=== PATIENT | female | born 1930 | race Caucasian/White ===

== ENCOUNTER 2018-01-27 14:00 | Inpatient (IN) | payer OTHER ==
[2018-01-27] MEDS ORDERED: NS 250 ML IV ONE (14:15)
[2018-01-27] MEDS ORDERED: ceFAZolin 2 GM/DEXTROSE 100 ML IV ONE (14:16)
--- NOTE | 2018-01-27 14:21 | EDPHY ---
H & P Time Seen by Provider: 01/27/18 14:12 HPI/ROS: HPI Right wrist injury. 87-year-old female by ambulance. This patient was walking with family when she tripped over a curb and fell on an outstretched right upper extremity. She presents the emergency department with complaint of a right wrist injury. Per report from EMS they felt this was a open fracture. She did not hit her head. Denies any neck pain. Denies any other extremity pain. She is on Coumadin for atrial fibrillation. She is right-hand dominant. ROS: Constitutional: No fever, no chills. No weakness. Eyes: No discharge. No changes in vision. ENT: No sore throat. No nasal congestion or rhinorrhea. Respiratory: No cough. No shortness of breath. Cardiac: No chest pain, no palpitations. Gastrointestinal: No abdominal pain, no vomiting, no diarrhea. Genitourinary: No hematuria. No dysuria or increased frequency with urination. Musculoskeletal: No back pain. No neck pain. As above. No other extremity pain. Skin: No rashes. Neurological: No headache. No focal weakness or altered sensation. Past medical history: Hypertension, atrial fibrillation. She takes Coumadin and HCTZ. Social history: Here with family. Nonsmoker. No alcohol. Physical Exam: General Appearance: Alert, no distress. This patient is responding to questions appropriately and in full sentences. This patient appears well- hydrated and well-nourished. Eyes: Pupils equal and round no pallor or injection. No lid edema, erythema or injection. Right upper extremity exam: Colles fracture deformity of the distal radius. Also significant for a elliptical, 6 cm skin tear over the distal ulna with exposure of the distal ulna and probable ulna carpal subluxation. The right hand is neurovascularly intact. Respiratory: There are no retractions, lungs are clear to auscultation with good air movement bilaterally. Cardiovascular: Regular rate and rhythm. No murmur. Gastrointestinal: Abdomen is soft and nontender, no masses, bowel sounds normal. No focal tenderness at McBurney's point. No Jalloh sign. Neurological: Motor sensory function is grossly intact. Cranial nerves are normal. Gait is normal. Skin: Warm and dry, no rashes. Musculoskeletal: Neck is supple and nontender. Extremities are symmetrical. All joints range without pain or impingement. Psychiatric: No agitation. No depression. Database: EKG: EKG time is 3:29 p.m.: EKG shows a ventricular paced rhythm with appropriate discordance. No significant change from prior study May of 2011. Ventricular rate is 76. Imaging: Right hand and wrist x-ray series: Significant for a comminuted Colles fracture dislocation. Interpreted by me. Procedures: Emergency department course: IV placed. Vital signs reviewed. Medication allergies reviewed. She will be given 2 g of IV Ancef for open fracture. Wound area as described above irrigated with saline and Betadine. Saline soaked gauze with dilute Betadine placed over the wound area. 3:15 p.m., spoke with on-call orthopedic surgeon Dr. Lozano. He reviewed the x- rays. He will take the patient to the OR shortly for washout and operative management of Colles fracture. 3:30 p.m., Dr. Lozano at the patient's bedside. Patient's remaining emergency department course under my care has been uneventful. She was admitted to the OR with the care of Dr. Lozano in stable condition. Right upper extremity neurovascularly intact on transfer to the OR. Differential Diagnosis: The differential diagnosis on this patient includes but is not limited to full- thickness skin tear of right distal wrist, open Colles fracture, open wrist dislocation. This represents a partial list of diagnoses considered. These considerations are based on history, physical exam, past history, reassessment and diagnostic testing. Smoking Status: Current every day smoker Constitutional: Initial Vital Signs Temperature (C) 36.6 C 01/27/18 14:09 Heart Rate 95 01/27/18 14:09 Respiratory Rate 20 01/27/18 14:09 Blood Pressure 157/66 H 01/27/18 14:09 O2 Sat (%) 95 01/27/18 14:09 O2 Delivery Mode Room Air Allergies/Adverse Reactions: No Known Allergies Allergy (Verified 01/27/18 15:11) Home Medications: Medication Instructions Recorded Triamterene/Hydrochlorothiazid 1 each PO DAILY PRN 01/27/18 [Triamterene-Hctz 37.5-25 mg Tb] Warfarin Sodium [Coumadin 1MG (*)] 1 mg PO MOWEFR@1600 01/27/18 Warfarin Sodium [Coumadin 2MG (*)] 2 mg PO SUTUTHSA@1600 01/27/18 Medical Decision Making - Diagnostics Imaging Results: Imaging Impressions Wrist X-Ray 01/27/18 14:12 Impression: Comminuted, displaced and mildly angulated intra-articular fracture of the distal right radius with associated ulnar styloid fracture. - Data Points Laboratory Results: Laboratory Results 01/27/18 14:20 01/27/18 14:20 01/27/18 01/27/18 01/27/18 14:20 14:20 14:20 WBC 8.08 10^3/uL 10^3/uL (3.80-9.50) RBC 4.59 10^6/uL 10^6/uL (4.18-5.33) Hgb 13.1 g/dL g/dL (12.6-16.3) Hct 39.4 % % (38.0-47.0) MCV 85.8 fL fL (81.5-99.8) MCH 28.5 pg pg (27.9-34.1) MCHC 33.2 g/dL g/dL (32.4-36.7) RDW 13.9 % % (11.5-15.2) Plt Count 249 10^3/uL 10^3/uL (150-400) MPV 9.3 fL fL (8.7-11.7) Neut % (Auto) 56.5 % % (39.3-74.2) Lymph % (Auto) 31.9 % % (15.0-45.0) Morrison % (Auto) 9.5 % % (4.5-13.0) Eos % (Auto) 1.5 % % (0.6-7.6) Baso % (Auto) 0.5 % % (0.3-1.7) Nucleat RBC Rel Count 0.0 % % (0.0-0.2) Absolute Neuts (auto) 4.56 10^3/uL 10^3/uL (1.70-6.50) Absolute Lymphs (auto) 2.58 10^3/uL 10^3/uL (1.00-3.00) Absolute Monos (auto) 0.77 10^3/uL 10^3/uL (0.30-0.80) Absolute Eos (auto) 0.12 10^3/uL 10^3/uL (0.03-0.40) Absolute Basos (auto) 0.04 10^3/uL 10^3/uL (0.02-0.10) Absolute Nucleated RBC 0.00 10^3/uL 10^3/uL (0-0.01) Immature Gran % 0.1 % % (0.0-1.1) Immature Gran # 0.01 10^3/uL 10^3/uL (0.00-0.10) PT 24.6 SEC H SEC (12.0-15.0) INR 2.22 H (0.83-1.16) APTT 34.2 SEC SEC (23.0-38.0) Sodium 143 mEq/L mEq/L (135-145) Potassium 4.0 mEq/L mEq/L (3.3-5.0) Chloride 105 mEq/L mEq/L (97-110) Carbon Dioxide 24 mEq/l mEq/l (22-31) Anion Gap 14 mEq/L mEq/L (8-16) BUN 19 mg/dL mg/dL (7-23) Creatinine 0.9 mg/dL mg/dL (0.6-1.0) Estimated GFR 60 Glucose 90 mg/dL mg/dL (70-100) Calcium 9.1 mg/dL mg/dL (8.5-10.4) Medications Given: Discontinued Medications Bupivacaine HCl (Sensorcaine 0.5% Vial) Confirm Administered Dose 30 ml .ROUTE .STK-MED ONE Stop: 01/27/18 15:07 Last Admin: 01/27/18 20:04 Dose: Not Given Fentanyl (Sublimaze) 25 mcg IVP EDNOW ONE Stop: 01/27/18 15:43 Last Admin: 01/27/18 14:39 Dose: 25 mcg Cefazolin Sodium/Dextrose (Ancef 2 Gm) 100 mls @ 200 mls/hr IV EDNOW ONE PRN Reason: Protocol Stop: 01/27/18 14:45 Last Admin: 01/27/18 14:34 Dose: 100 mls Sodium Chloride (Ns) 250 mls @ 0 mls/hr IV ONCE ONE; Wide Open PRN Reason: Protocol Stop: 01/27/18 14:16 Last Admin: 01/27/18 14:34 Dose: 250 mls Departure - Departure Disposition: To OP Cath/Surgery Clinical Impression: Right wrist injury, Open wrist fracture
[2018-01-27 14:30] LABS: PLATELET COUNT 249 10^3/uL (150-400)
[2018-01-27] MEDS ORDERED: fentaNYL 100 MCG/2 ML INJ ONE ×2 (14:39→16:01)
[2018-01-27 14:41] LABS: INR 2.22 (0.83-1.16); PROTIME(PATIENT) 24.6 SEC (12.0-15.0)
[2018-01-27] MEDS ORDERED: BUPIVACAINE 0.5% 30 ML SDV ONE (15:06)
--- NOTE | 2018-01-27 15:32 | CPEKG ---
Heart Rate: 76 RR Interval: 789 P-R Interval: 176 QRSD Interval: 152 QT Interval: 440 QTC Interval: 495 P [place]: 0 QRS [place]: -62 T Wave [place]: 105 EKG Severity - ABNORMAL ECG - EKG Impression: VENTRICULAR-PACED RHYTHM Electronically Signed By: Rhett English 27-Jan-2018 19:58:42
[2018-01-27] MEDS ORDERED: DEXAMETHASONE 4 MG/ML VIAL IVP PRN (15:35)
[2018-01-27] MEDS ORDERED: NALOXONE HCL 0.4 MG/ML INJ IVP PRN (15:35)
[2018-01-27] MEDS ORDERED: fentaNYL 100 MCG/2 ML INJ IVP PRN (15:35)
[2018-01-27] MEDS ORDERED: HYDROmorphONE/DILAUDID 2 MG/ML INJ IVP PRN (15:35)
[2018-01-27] MEDS ORDERED: ONDANSETRON 4 MG/2 ML VIAL IVP PRN ×2 (15:35→18:08)
--- NOTE | 2018-01-27 15:38 | PDANEPAE ---
ANE History of Present Illness Right Forearm Open Fx ORIF ANE Past Medical History - Cardiovascular History Hx Hypertension: Yes Hx Arrhythmias: Yes Cardiovascular History Comment: PACEMAKER - Pulmonary History Hx COPD: No Hx Asthma/Reactive Airway Disease: Yes Hx Recent Upper Respiratory Infection: No Hx Oxygen in Use at Home: No ANE Review of Systems Review of Systems: - Exercise capacity Exercise capacity: >=4 METS ANE Patient History - Allergies Allergies/Adverse Reactions: No Known Allergies Allergy (Verified 01/27/18 15:11) - Home Medications Home Medications: Triamterene/Hydrochlorothiazid [Triamterene-Hctz 37.5-25 mg Tb] 1 each PO DAILY PRN 01/27/18 [Last Taken 01/24/18] Warfarin Sodium [Coumadin 1MG (*)] 1 mg PO MOWEFR@1600 01/27/18 [Last Taken ] Warfarin Sodium [Coumadin 2MG (*)] 2 mg PO SUTUTHSA@1600 01/27/18 [Last Taken ] - Smoking Hx Smoking Status: Current every day smoker ANE Labs/Vital Signs - Labs Result Diagrams: 01/27/18 14:20 01/27/18 14:20 - Vital Signs Blood Pressure: 137/66 Heart Rate: 75 Respiratory Rate: 18 O2 Sat (%): 97 Weight: 50.802 kg ANE Physical Exam - Airway Neck exam: FROM Mallampati Score: Class 2 Mouth exam: normal dental/mouth exam - Pulmonary Pulmonary: clear to auscultation - Cardiovascular Cardiovascular: regular rate and rhythym - ASA Status ASA Status: II ANE Anesthesia Plan Anesthesia Plan: GA w LMA
[2018-01-27] MEDS ORDERED: fentaNYL 100 MCG/2 ML INJ IVP ONE (15:42)
--- NOTE | 2018-01-27 15:57 | GCON ---
[f rep st] CONSULTATION DATE OF CONSULTATION: 01/27/2018 CHIEF COMPLAINT: Right open distal radius and ulna fracture. HISTORY OF PRESENT ILLNESS: This is an 87-year-old female who tripped and fell on her right hand. S he had an obvious open fracture and was brought to the emergency room by her daughter and grandson. They complained of a small laceration on her other hand. No other injuries. REVIEW OF SYSTEMS: Review of systems performed and is negative except for HPI, 10 point. PAST MEDICAL HISTORY: Hypertension, atrial fibrillation, pacemaker placement, possible [place]. SURGICAL HISTORY: Pacemaker placement. SOCIAL HISTORY: She is a nonsmoker, nondrinker. FAMILY HISTORY: Reviewed and noncontributory. ALLERGIES: No known drug allergies. PHYSICAL EXAM: GENERAL: She is alert. She does not appear in any distress at this point. She has been given some pain medications. HEENT: Her eyes are equal and reactive. Her face appears atrauma tic. Her mouth shows moist mucous membranes. NECK: Supple. Moves well. CHEST: Good inspiratory effort. She is on oxygen. CARDIOVASCULAR: Regular rate and rhythm. ABDOMEN: Soft. EXTREMITIES: Her right upper extremity is covered in bandages. I did not remove this, given the known open fract ure. She does not have elbow or shoulder pain. On her left hand, she has a small laceration on the long finger. She, however, can move this quite well. This is nontender and is neurovascularly intac t. Lower extremities are not tender, and she can internally and externally rotate. IMAGING: Right hand and wrist x-rays show a displaced comminuted intra-articular open distal radius fracture and distal ulna fracture. PLAN: Given her open fracture with significant skin breakage and laceration, will take her to the op erating room on an emergent basis for open irrigation, debridement, and ORIF of the fracture. She wi ll likely require FFP, given her INR of 2.2. This was ordered. She was given Ancef upon arrival 2 g IV. Will keep her on Ancef for at least 24 hours for open fracture treatment. I warned her that sh e may possibly require an external fixator, given the brittleness of her bones and the fracture, if I am unable to perform ORIF either due to contamination or bone quality. Will take her to the operati ng room. /[id number]/MODL
[2018-01-27] MEDS ORDERED: PROPOFOL 200 MG/20 ML VIAL ONE (16:00)
[2018-01-27] MEDS ORDERED: ONDANSETRON 4 MG/2 ML VIAL ONE (17:46)
[2018-01-27] MEDS ORDERED: DEXAMETHASONE 4 MG/ML VIAL ONE (17:47)
--- NOTE | 2018-01-27 18:03 | POSTANESTH ---
Post Anesthetic Evaluation Cardiovascular Status: Normal, Stable Respiratory Status: Normal, Stable Level of Consciousness/Mental Status: Alert and Oriented Pain Control: Adequate, Prn Tx Ordered Nausea/Vomiting Control: Adequate, Prn Tx Ordered Complications Possibly Related to Anesthesia: None Noted
--- NOTE | 2018-01-27 18:04 | POSTOPPROG ---
Post Op Note Date of Operation: 01/27/18 Surgeon: Payam Lozano Anesthesiologist: Gold Anesthesia: GET(General Endotracheal) Pre-op Diagnosis: R open distal radius and ulna fx Post-op Diagnosis: same Indication: above Procedure: I and D and orif R radius and ulna fracture Inf/Abcess present in the surg proc area at time of surgery?: No EBL: 50-100
[2018-01-27] MEDS ORDERED: HYDROCODONE/APAP 5/325 TAB PO PRN (18:08)
[2018-01-27] MEDS ORDERED: HYDROmorphONE/DILAUDID 1 MG/ML INJ IVP PRN (18:08)
--- NOTE | 2018-01-27 18:53 | GOP ---
[f rep st] OPERATIVE REPORT DATE OF OPERATION: 01/27/2018 SURGEON: Payam Lozano MD DAIRY PROCESSING EQUIPMENT OPERATOR: None. ANESTHESIA: General. PREOPERATIVE DIAGNOSIS: Right open distal radius and ulna fracture including four-part distal radius fracture. POSTOPERATIVE DIAGNOSIS: Right open distal radius and ulna fracture including four-part distal radius fracture. PROCEDURE PERFORMED: 1. Right wrist irrigation and debridement of open fracture including bone. 2. Treatment of right distal ulna fracture with excision of fragment. 3. Open reduction and internal fixation, right distal radius fracture, four- part fracture. FINDINGS: SPECIMENS: None. ESTIMATED BLOOD LOSS: 50 mL. INDICATIONS: This is an 87-year-old female who fell and sustained this open fracture type 2. She was seen in the emergency room, given 2 g of Ancef. I was called, and I took her emergently to the operating room given the open fracture. I counseled on risks and benefits of operative intervention including need for an external fixator, malunion, nonunion, collapse, failure of fixation, the fact that she had osteoporotic bone, nerve injury, nonhealing of the open wound, need for further wound care, and need for skin grafts. She elected to proceed. Informed consent obtained with her daughter. DESCRIPTION OF PROCEDURE: She was taken to the operative suite. She was sterilely prepped and draped in normal fashion. Time-out was performed. We verified the patient, site, side, location. Agreement with the team. FFP was hung during the case as her INR was 2.2 pre-op. The tourniquet was inflated. No Esmarch was utilized. I irrigated the open wound, explored this. I excised a small ulna styloid fracture which was contaminated and felt would add to the infection. We then thoroughly irrigated this with 3 L of normal saline. I turned the wrist and made the incision volarly. We found the FCR tendon, moved this to the side and then worked through the sheath around this tendon. I mobilized the quadratus, protecting neurovascular structures and elevating a portion of her brachioradialis. She had a comminuted and significantly displaced fracture with four parts and significant intra-articular comminution. I was able to provisionally reduce this and hold this manually. This took some manipulation. There was a small amount of gapping at the joint depression which I did not feel I could improve given her osteoporosis and the extreme comminution and fragility of the fracture. So I placed the plate, held this provisionally. Checked x-rays. Placed locking screws distally and nonlocking screws proximally to bring the plate to bone then I used locking screws distally. I then reduced the side fragment and placed more locking screws in this. Checked this fluoroscopically including 4 other. No screws in the joint. They had to be closed to hold the reduction. She had good motion. I placed all locking screws in the shaft. She was thoroughly irrigated, closed the surgical incision with 3-0 Vicryl, Stratafix and Dermabond, and then open incisions closed with 4-0 nylon and placed her in a dressing splint and taken to the PACU in stable condition. She will be admitted to the hospital for IV antibiotics. IMPLANTS: Synthes locking distal radius plate, volar, with locking and nonlocking screws. COMPLICATIONS: None. DRAINS: None. CONDITION: Stable. /[id number]/MODL MTDD
[2018-01-28] MEDS ORDERED: TRIAMTERENE/HCTZ 37.5/25 1 EACH TAB PO PRN (09:12)
[2018-01-28 09:46] LABS: INR 2.34 (0.83-1.16); PROTIME(PATIENT) 25.6 SEC (12.0-15.0)
[2018-01-28 11:44] VITALS: BP 128/74
--- NOTE | 2018-01-28 12:29 | PDMN ---
Medical Necessity Medical necessity: Pt meets IP criteria per MD; est los >2 mn for eval/tx of R open distal radius & ulna fx; admit for emergent I&D/ORIF, further monitoring, Hospitalist consult, IV abx, pain management & therapy; hx HTN, AFIB, pacer & possible [place]; per consult & order 01/27/18
--- NOTE | 2018-01-28 13:58 | SOAPPROG ---
SOAP Progress Note Assessment/Plan: Assessment: R open distal radius and ulna fx Plan: s/p I and D and orif NWB RUE elevate ice ancef for open fx treatment d/c today on oral abx 01/28/18 13:57 Subjective: minimal pain in wrist Objective: Vital Signs Temp Pulse Resp BP Pulse Ox 37.2 C 69 18 128/74 H 92 01/28/18 11:43 01/28/18 11:43 01/28/18 11:43 01/28/18 11:43 01/28/18 11:43 01/27/18 01/28/18 01/29/18 05:59 05:59 05:59 Intake Total 1105 500 Output Total 555 49 Balance 550 451 PT 25.6 SEC (12.0-15.0) H 01/28/18 09:30 INR 2.34 (0.83-1.16) H 01/28/18 09:30 good cap refill can move fingers silt ICD10 Worksheet Patient Problems: Problems Problem Status Onset Open wrist fracture Acute Right wrist injury Acute
--- NOTE | 2018-01-28 14:21 | GDS ---
[f rep st] DISCHARGE SUMMARY CHIEF COMPLAINT: Right open distal radius and ulna fracture. HOSPITAL COURSE: She was admitted to the hospital after surgical treatment of right open distal radi us and ulna fracture. She has maintained her splint. Her pain was able to be controlled. She recei ravi her 24 hours of IV antibiotics for open fracture treatment and thought she met criteria for disch arge being discharged on oral antibiotics. She remained stable throughout the hospitalization. DISPOSITION: She is sent home. Sent home on a regular diet. Sent home nonweightbearing on the righ t upper extremity. She can move her fingers. She will keep the splint on. Keep it dry. She will f ollow up in 10 days for x-rays and change her cast. She is given a prescription for a week of Keflex for open fracture treatment as well as Ultram for pain. She has started her previous home medicatio ns including her Coumadin. She has not required any other specific DVT prophylaxis. She will call o r come into the hospital if she has chest pain, shortness of breath, increased pain, or other concern s. /[id number]/MODL
--- NOTE | 2018-01-28 14:31 | GCON ---
[f rep st] CONSULTATION DATE OF CONSULTATION: 01/28/2018 REASON FOR CONSULTATION: medical management. CHIEF COMPLAINT: Right arm pain. HISTORY OF PRESENT ILLNESS: This patient is an 87-year-old female who tripped and fell, landing on h er right hand. She presented to the emergency room with a noted open fracture. She was admitted for further management. The patient denies any nausea, vomiting, diarrhea. Denies any fever, sweats or night chills. Denies any dyspnea, shortness of breath, or chest pain. She has no other complaints other than right arm pain and small laceration on her left hand. REVIEW OF SYSTEMS: Comprehensive review of systems is negative, other than noted in the HPI. PAST MEDICAL HISTORY: Hypertension, atrial fibrillation, pacemaker placement. PAST SURGICAL HISTORY: Pacemaker placement. SOCIAL HISTORY: The patient is a nonsmoker. She denies any alcohol. FAMILY HISTORY: Reviewed and noncontributory. ALLERGIES: No known drug allergies. HOME MEDICATIONS: Coumadin, triamterene, hydrochlorothiazide. PHYSICAL EXAM: GENERAL: The patient is alert, in no acute distress, oriented. VITAL SIGNS: Afebri le at 37.2, pulse 69, respiratory rate 18, blood pressure 128/74. She is saturating 92% on room air. HEENT: Normocephalic, atraumatic. Moist mucosal membranes. Poor dentition. NECK: Supple. No l ymphadenopathy noted. RESPIRATORY: Lungs are clear to auscultation bilaterally in the upper bases. Decreased in the lower bases. CARDIOVASCULAR: Regular rate and rhythm. No gallop or murmur apprec iated. GASTROINTESTINAL: Abdomen: Bowel sounds are positive. Soft and nontender. There is no gua rding or rigidity noted. EXTREMITIES: Right upper extremity is covered in dressings. This is not b een examined underneath given the patient's recent surgical intervention. Left hand has a laceration on the long middle finger. Other extremities are intact. No clubbing or cyanosis noted. SKIN: Wi thout rashes or lesions. NEUROLOGIC: The patient is focally intact. IMAGING: Right hand and wrist x-ray shows displaced commuted intra-articular open distal radius frac ture and distal ulnar fracture. LABORATORY EVALUATION: CBC and metabolic panel are within normal limits. The patient's INR is noted to be 2.34. ASSESSMENT/PLAN: The patient is an 87-year-old female who suffered a mechanical fall, presents to [facility] emergency room with a right open displaced distal radius fracture and distal ulna fracture. She is in the postoperative setting day 1 of an ORIF for the fracture. She has previously been on Coumadin secondary to her history of atrial fibrillation. She did receive a unit of FFP in the operating madhavi m. Her INR today is 2.34. We will reinitiate her Coumadin therapy. She is rate controlled, and we will follow her INR during this hospitalization. She has been placed on IV Ancef. Her pain is well controlled during my evaluation. We will continue thorough pain management. I appreciate the ability to consult in this pleasant woman's care. We will follow along with you dur ing the patient's hospitalization. /[id number]/MODL
--- NOTE | 2018-01-28 14:41 | ASMTCMCOM ---
CM Note CM Note Notes: Pt had surgery for wrist and forearm fracture after a fall. Pt medically stable for d/c with son support. Pt resides alone and son with stay with her at d/c. Pt to d/c on oral antibiotics. PT/OT clear pt for home. No CM d/c needs identified. Date Signed: 01/28/2018 02:40 PM Electronically Signed By:KEIRY Lyman
[2018-01-28] MEDS ORDERED: WARFARIN SODIUM 2 MG TAB PO SCH (16:00)
[2018-01-29] MEDS ORDERED: WARFARIN SODIUM 1 MG TAB PO SCH (16:00)
== END 2018-01-28 15:00 | disposition home or self-care (01) | DRG 512 ==
LOC: EDUNIT# → F3N 18:45
PROVIDERS: ADMIT Orthopaedic Surgery; ATTEND Orthopaedic Surgery
DX: S52.501B Unspecified fracture of the lower end of right radius, initial encounter for open fracture type I or II (principal); S52.601A Unspecified fracture of lower end of right ulna, initial encounter for closed fracture; W01.0XXA Fall on same level from slipping, tripping and stumbling without subsequent striking against object, initial encounter; I48.91 Unspecified atrial fibrillation; Z79.01 Long term (current) use of anticoagulants; I10 Essential (primary) hypertension; Z95.0 Presence of cardiac pacemaker
CPT/HCPCS: 96365; 97161-GP; 97165-GO; 97535-GO; C1713; G8978-GP-CI; G8979-GP-CI; G8980-GP-CI; G8987-GO-CJ; G8988-GO-CI; G8989-GO-CI; J0690; J1100; J2405; J2704; J3010; P9016; P9017